=== PATIENT | male | born 1955 | race Caucasian/White ===

== ENCOUNTER 2018-05-05 12:58 | Day surgery (SDC) | payer OTHER, SELFPAY ==
[2018-05-05] VITALS (7 sets, daily range): BP systolic 139–192; BP diastolic 81–91; PULSE 58–64; RESP 14–16; TEMP 36.1–36.6; O2SAT 93–97; BMI 27.7
--- NOTE | 2018-05-05 | PATH_ITS ---
[facility] Accession Number: [id number] . 01 Material submitted: . PART A: ANTRAL BIOPSY PART B: GE JUNCTION BIOPSY . 02 Diagnosis: A. Stomach, Antrum, Biopsy: Antral mucosa with mild chronic gastritis. Negative for Helicobacter organisms by immunohistochemistry. Negative for intestinal metaplasia. Negative for dysplasia and malignancy. . B. Gastroesophageal Junction, Biopsy: Squamocolumnar junctional mucosa with no diagnostic abnormality. Negative for intestinal metaplasia. Negative for dysplasia and malignancy. . BFI05/09/2018 . 02 Electronically signed: . Seema Chavez MD, Pathologist NPI- [id number] . 01 Gross description: . Received are two formalin-filled containers, both labeled with the patient's name: . A. In a container labeled 1. Antral, are three 0.1-0.3 cm portions of tissue, entirely submitted in cassette A. B. In a container labeled 2. GE junction, are multiple less than 0.1 cm to 0.2 cm portions of tissue, which are filtered, wrapped, and entirely submitted in cassette B. ([id number]) /FRR . 02 Microscopic: . A. An immunohistochemical stain was performed to evaluate for Helicobacter organisms and is negative. A control stain showed appropriate reactivity. . * This test was developed and its performance characteristics determined by [facility]. It has not been cleared or approved by the U.S. Food and Drug Administration. The FDA has determined that such clearance or approval is not necessary. This test is used for clinical purposes. It should not be regarded as investigational or for research. . 02 Pathologist provided ICD-10: R10.9 . 02 CPT . 975794, 117507, G99680 Performed at: 01 [facility] [address] [place] [address], [place], [place] [id number] MD Daniel Murphy MD Phone: [phone] Performed at: 02 [facility] [address] [place], [place] [id number] MD Tino Bridges MD Phone: [phone]
--- NOTE | 2018-05-05 13:40 | PM.PREOP ---
Pre-operative Note Interval Note Pre-op Check: History & Physical Reviewed by Physician H&P completed within 30 days and has changed as indicated here:: Patient seen and examined in the clinic yesterday. Proceed with EGD and possible biopsy with potential dilatation as planned today. ASA Class (for procedural sedation): II
[2018-05-05] MEDS: SODIUM CHLORIDE 0.9% 1,000 ML 200 ML IV (13:43)
[2018-05-05] MEDS: TETRACAINE/BENZOCAINE/BUTAMBEN (CETACAINE) BOTTLE 1 SPRAY TOP (13:50)
[2018-05-05] MEDS: LIDOCAINE 4% SOLN 50 ML 20 ML TOP (13:50)
[2018-05-05] MEDS: MIDAZOLAM 5 MG/5 ML VIAL IV (13:57)
[2018-05-05] MEDS: fentaNYL 250 MCG/5 ML INJ IV (13:58)
--- NOTE | 2018-05-05 14:00 | PM.OP.ENDO ---
Operative Date/Time/Diagnoses - Date of procedure: 05/05/18 Time of procedure: 14:01 Pre-op diagnosis: Progressive gastroesophageal reflux disease Post-op diagnosis: same Procedure & Clinicians Study performed: 1. Sedation per surgeon 2. Esophagogastroduodenoscopy with cold forceps biopsies Same procedure as scheduled: Yes Indications: 63-year-old male with longstanding history of reflux disease recently experiencing progressive symptoms despite medical management. EGD with biopsy was recommended. Surgeon: Berlin Garcia Procedure Notes SCOAP/Timeout: Yes Procedure in detail: After obtaining informed consent, the patient was brought to the GI suite and placed in the left lateral decubitus position on the examination table. After placement of appropriate monitors, the patient was given incremental doses of Versed and Fentanyl until an appropriate level of sedation was achieved. A time out was held per SCOAP protocol. A bite block was gently placed between the patient's teeth. The endoscope was lubricated and then passed into the patient's posterior oropharynx. The esophagus was cannulated under direct vision and the scope was passed to the second portion of the duodenum without difficulty. The scope was then withdrawn with careful examination of all areas of the upper GI tract and mucosa. In the stomach, the instrument was retroflexed and the GE junction examined. Z-line was located 40 cm from the incisors. The scope was straightened and the procedure continued with examination of the remainder of the upper GI tract. Findings are noted above. Air was aspirated from the stomach and the endoscope gently removed from the esophagus. The patient was allowed to awaken from sedation without difficulty and taken to the post-anesthesia care unit in good condition. Scope withdrawal time: Not applicable Sedation minutes: 12 Findings: gastritis Specimen(s): other (1. Antral biopsies 2. Gastroesophageal junction biopsies) Complications: none Recommendations: No ASA/NSAIDS and Continue medication(s) Plan for aftercare: 1. Discharged home Follow up: weeks (One week in surgery clinic) Disposition: PACU
== END 2018-05-05 14:48 | disposition home or self-care (01) ==
PROVIDERS: PCP Family Medicine; Visit Provider Surgery
PROC: 0DJ08ZZ Inspection of Upper Intestinal Tract, Via Natural or Artificial Opening Endoscopic (ICD-10-PCS; CPT 43235; principal; 2018-05-05 14:00)
DX: K21.9 Gastro-esophageal reflux disease without esophagitis (principal); K29.70 Gastritis, unspecified, without bleeding; I10 Essential (primary) hypertension; M06.9 Rheumatoid arthritis, unspecified
CPT/HCPCS: 43239; 99152; J2250; J3010